=== PATIENT | female | born 1960 | race Caucasian/White ===

== ENCOUNTER 2022-08-29 07:51 | Day surgery (SDC) | payer OTHER, SELFPAY ==
[2022-08-29 08:05] VITALS: BP 191/86; PULSE 92; RESP 20; O2SAT 95
[2022-08-29] MEDS: DIAZEPAM 5 MG TABLET PO (08:10)
[2022-08-29] MEDS: CYCLOPENTOLATE HCL 1% OP SOL 40 DROP/2 ML BOTTLE OP ×4 (08:11→09:00)
[2022-08-29] MEDS: BESIFLOXACIN HCL 100 DROP DROPS.SUSP OP ×4 (08:11→09:00)
[2022-08-29] MEDS: PHENYLEPHRINE HCL 2.5% OP SOL 40 DROP/2 ML BOTTLE OP ×4 (08:12→09:00)
[2022-08-29] MEDS: TROPICAMIDE 1% OP SOL 300 DROP/15 ML BOTTLE OP ×4 (08:12→09:00)
[2022-08-29] MEDS: LIDOCAINE 2% JELLY 10 ML UR (09:25)
[2022-08-29] MEDS: BETADINE POVIDONE-IODINE 5% OP SOL 30 ML BOTTLE OP (09:25)
[2022-08-29] MEDS: CEFUROXIME SODIUM 750 MG, 0.9 % SODIUM CHLORIDE 16.3 ML OP (09:30)
--- NOTE | 2022-08-29 09:30 | OP_ITS ---
OPERATION DATE: ??08/29/2022 SURGEON:? Carson Luna M.D. PREOPERATIVE DIAGNOSIS:? Nuclear sclerotic cataract right eye. POSTOPERATIVE DIAGNOSIS:? Nuclear sclerotic cataract right eye. PROCEDURE:? Cataract extraction with intraocular lens placement for the right eye. ANESTHESIA:? Topical. ESTIMATED BLOOD LOSS:? Zero. COMPLICATIONS:? None. PROCEDURE:? The patient was brought to the operating room in supine position.? After proper identification, the right eye was prepped and draped in a sterile ophthalmic fashion.? A paracentesis was created at the 11 o'clock position.? Approximately 1 cc of unpreserved Xylocaine was injected into the anterior chamber followed by Amvisc Plus.? Using a 2.6 mm Keratome blade, a clear corneal incision was created at the 9 o'clock limbus.? A cystotome was then used to begin a curvilinear capsulorrhexis that was continued for 360 degrees with the Utrata forceps.? BSS on a 26 gauge cannula was injected beneath the anterior capsule to hydrodissect as well as hydrodelineate the lens.? After ensuring mobility, phacoemulsification was performed in a [id number]-type fashion.? After all nuclear material had been removed from the eye, IA was introduced and all residual cortical material was cleaned up.? Additional Amvisc Plus was injected into the posterior bag and a lens model MX60, 20.0 diopters was then injected and dialed into position.? After ensuring centration, IA was reintroduced into the anterior chamber and all residual Amvisc Plus was removed from the eye.?? BSS on a 30 gauge cannula was injected into the stroma of both the clear corneal incision as well as the paracentesis to hydrate the wounds.? Additional BSS was injected into the anterior chamber to pressurize the eye at approximately 20 to 22 mmHg by finger tension.? 0.1 cc of antibiotic was injected into the anterior chamber and Weck-Rupa sponges were used to check the wounds to be watertight.? One drop of Apraclonidine and one drop of prednisolone acetate were placed into the eye and a shield was placed over top. The patient was then sent to the postoperative area in satisfactory condition to follow up the following day for postoperative care. YVROSE
[2022-08-29] MEDS: HYALURONATE SODIUM 16 MG/ML SYRINGE EYE-RIGHT (09:41)
[2022-08-29] MEDS: LIDOCAINE HCL 1% PF 20 MG/2 ML VIAL 1 ML INJ (09:41)
[2022-08-29] MEDS: PHENYLEPHRINE/KETOROLAC 1-0.3% ML VIAL 4 ML IRR (09:42)
[2022-08-29] MEDS: PREDNISOLONE ACETATE OP 1% SUSP 100 DROPS/5 ML 1 DROP OP (09:46)
[2022-08-29] MEDS: APRACLONIDINE HCL 100 DROP/5 ML BOTTLE OP (09:46)
[2022-08-29 11:27] VITALS: BP 149/106; BP 193/96; PULSE 71; RESP 20; O2SAT 100; O2SAT 99
== END 2022-08-29 09:55 | disposition home or self-care (01) ==
PROVIDERS: PCP Internal Medicine; Visit Provider Ophthalmology
PROC: (CPT 66984; principal; 2022-08-29 09:00)
DX: H25.11 Age-related nuclear cataract, right eye (principal)
CPT/HCPCS: 66984; V2630

== ENCOUNTER 2023-09-02 13:36 | Outpatient (OUT) | payer OTHER, SELFPAY ==
--- NOTE | 2023-09-02 13:41 | US_ITS ---
Patient Name: FABIO CANNON MR#: [id number] : 1960 Exam Date: 09/02/2023 Ordering Doctor: MRS. JOANNE MENDOZA DIRECTOR OF TRAINING-C RADIOLOGY REPORT PROCEDURE: MM TOMOSYNTHESIS DIAGNOSTIC BI, 09/02/2023, 13:50 US BREAST LT LIMITED, 09/02/2023, 14:07 COMPARISON: None. INDICATIONS: Mass Of Lower Outer Quadrant Of Left Breast N63.23 Calculator Name NCI Breast Cancer Risk Assessment Tool 5 Year Breast Cancer Risk 1.30% Lifetime Breast Cancer Risk 5.20% Personal Breast Cancer No Personal Ovarian Cancer No Treatments None Family Cancers Father with colon cancer at age 62. LOCATION: [facility] BREAST COMPOSITION: The breasts are heterogeneously dense,which may obscure small masses. FINDINGS: DIAGNOSTIC CATEGORY 5--HIGHLY SUGGESTIVE OF MALIGNANCY. HIGH PROBABILITY OF MALIGNANCY BASED ON THE FOLLOWING: RIGHT BREAST: No significant suspicious finding. LEFT BREAST: 2 cm rounded markedly spiculated mass within the lower-outer quadrant posterior breast most consistent with neoplasm. Ultrasound evaluation demonstrates a 1.6 x 1.5 x 1.3 cm lobular spiculated hypoechoic mass with posterior shadowing and internal blood flow. Ultrasound-guided core biopsy is recommended. RECOMMENDATIONS: ULTRASOUND-GUIDED CORE BIOPSY: LEFT BREAST PLEASE NOTE: A NORMAL MAMMOGRAM DOES NOT EXCLUDE THE POSSIBILITY OF BREAST CANCER. A CLINICALLY SUSPICIOUS PALPABLE LUMP SHOULD BE BIOPSIED. Dictated by: Suhail Fu M.D. on 09/02/2023 at 14:36 Approved by: Suhail Fu M.D. on 09/02/2023 at 14:40
== END 2023-09-02 13:37 | disposition home or self-care (01) ==
LOC: MAMMO 13:36
PROVIDERS: PCP Internal Medicine; Visit Provider Nurse Practitioner Family
DX: N63.23 Unspecified lump in the left breast, lower outer quadrant (principal); Z80.0 Family history of malignant neoplasm of digestive organs
CPT/HCPCS: 76642; 77066; G0279